=== PATIENT | male | born 1990 | race Caucasian/White ===

== ENCOUNTER 2021-10-22 14:04 | Emergency (ER) | payer OTHER ==
[~2021-10-22] VITALS: Ht 177.8 cm; Wt 74.8 kg
[2021-10-22 14:10] VITALS: BP 134/69
--- NOTE | 2021-10-22 14:10 | NUR ---
BIBS FOR WOUND CHECK UP, RIGHT THUMB AVULSION YESTERDAY AT DIFFERENT HOSPITAL
--- NOTE | 2021-10-22 14:23 | NUR ---
DR SANDOVAL AT BEDSIDE
[2021-10-22] MEDS ORDERED: GELATIN SPONGE,ABSORBABLE 1 SPONGE SPONGE TP ONE (14:27)
--- NOTE | 2021-10-22 14:55 | NUR ---
Patient discharged to home in stable condition. Written and verbal after care instructions given. Patient verbalizes understanding of instruction.
== END 2021-10-22 14:56 | disposition home or self-care (01) ==
LOC: ER 14:17
DX: S61.011A Laceration without foreign body of right thumb without damage to nail, initial encounter (principal); W26.8XXA Contact with other sharp object(s), not elsewhere classified, initial encounter; Y93.89 Activity, other specified; Y92.89 Other specified places as the place of occurrence of the external cause; Y99.8 Other external cause status
CPT/HCPCS: 99282; A6403

== ENCOUNTER 2021-10-23 08:59 | Emergency (ER) | payer OTHER ==
[~2021-10-23] VITALS: Ht 177.8 cm; Wt 74.8 kg
[2021-10-23] MEDS ORDERED: GELATIN SPONGE,ABSORBABLE 1 SPONGE SPONGE TP ONE (09:14)
[2021-10-23 10:05] VITALS: BP 128/60
--- NOTE | 2021-10-23 10:05 | NUR ---
WOUND CHECK DONE. RE DRESSED. DISCHARGE IN STABLE CONDITION
== END 2021-10-23 10:06 | disposition home or self-care (01) ==
LOC: ER 09:05
DX: S61.011D Laceration without foreign body of right thumb without damage to nail, subsequent encounter (principal); W26.8XXD Contact with other sharp object(s), not elsewhere classified, subsequent encounter